=== PATIENT | male | born 1960 | race Caucasian/White ===

== ENCOUNTER 2017-07-08 11:38 | Inpatient (IN) | payer BC ==
[~2017-07-08] VITALS: Ht 185.4 cm; Wt 77.1 kg
[2017-07-08 12:27] LABS: HEMATOCRIT 44.1 % (38.0-50.0); HEMOGLOBIN 15.8 G/DL (12.5-16.6); MCH 31.2 PG (29.0-34.0); MCHC 35.8 G/DL (30.0-36.0); MCV 87.2 FL (86-99); PLATELET COUNT 137 K/uL (156-360); RBC DIS.WIDTH-CV 11.9 % (11.8-14.6); RED BLOOD COUNT 5.06 M/uL (4.00-5.50); WHITE BLOOD COUNT 15.7 K/uL (4.1-10.2)
[2017-07-08 12:38] LABS: CHLORIDE 98 mEq/L (99-109); POTASSIUM 4.1 mEq/L (3.7-5.4); SODIUM 133 mEq/L (136-147)
[2017-07-08 12:39] LABS: GLUCOSE 109 mg/dL (70-99)
[2017-07-08 12:43] LABS: CREATININE 1.1 mg/dL (0.6-1.3); GFR ESTIMATE (CALCULATED) > 59 mL/min/ (58.99-99999)
[2017-07-08 12:44] LABS: UREA NITROGEN (BUN) 19 mg/dL (9-23)
[2017-07-08 13:30] LABS: APPEARANCE CLOUDY ((CLEAR)); BILIRUBIN NEGATIVE; BLOOD MODERATE; COLOR AMBER ((YELLOW)); GLUCOSE (STRIP) NEGATIVE; KETONES NEGATIVE; LEUKOCYTES LARGE; NITRITE POSITIVE; PROTEIN (STRIP) 100; SPECIFIC GRAVITY 1.026 (1.000-1.030)
[2017-07-08 13:43] LABS: RED BLOOD CELLS 15-20 /HPF (0-5); WHITE BLOOD CELLS TNTC /HPF (0-5)
[2017-07-08 13:44] LABS: BACTERIA 1+ /HPF; EPITHELIAL CELLS RARE /HPF; MUCUS RARE /LPF; UCUL ADDED? YES
[2017-07-08 17:12] VITALS: BP 103/67
[2017-07-08 19:40] VITALS: BP 101/62
[2017-07-08 23:39] VITALS: BP 97/60
[2017-07-09 07:19] VITALS: BP 115/70
[2017-07-09 11:16] VITALS: BP 114/58
[2017-07-09 15:46] VITALS: BP 113/74
[2017-07-09 19:38] VITALS: BP 97/67
[2017-07-09 23:36] VITALS: BP 100/63
[2017-07-10 04:05] VITALS: BP 94/51
[2017-07-10 06:52] LABS: HEMATOCRIT 35.7 % (38.0-50.0); MCH 30.2 PG (29.0-34.0); MCHC 33.9 G/DL (30.0-36.0); PLATELET COUNT 97 K/uL (156-360); RBC DIS.WIDTH-CV 12.3 % (11.8-14.6); RBC DIS.WIDTH-SD 39.9 % (39-53); WHITE BLOOD COUNT 5.9 K/uL (4.1-10.2)
[2017-07-10 06:56] LABS: HEMOGLOBIN 12.1 G/DL (12.5-16.6); RED BLOOD COUNT 4.01 M/uL (4.00-5.50)
[2017-07-10 07:00] LABS: CHLORIDE 110 MEQ/L (99-109); CREATININE 0.9 MG/DL (0.6-1.3); GFR ESTIMATE (CALCULATED) > 59 mL/min/ (58.99-99999); GLUCOSE 100 mg/dL (70-99); POTASSIUM 4.1 MEQ/L (3.7-5.4); UREA NITROGEN (BUN) 13 mg/dL (9-23)
[2017-07-10 07:11] LABS: SODIUM 140 MEQ/L (136-147)
[2017-07-10 07:59] VITALS: BP 127/81
[2017-07-10 12:23] VITALS: BP 123/74
[2017-07-10 16:24] VITALS: BP 121/71
[2017-07-10 19:30] VITALS: BP 130/75
[2017-07-10 23:48] VITALS: BP 118/72
[2017-07-11 05:21] VITALS: BP 131/87
[2017-07-11 09:22] VITALS: BP 151/91
[2017-07-11 11:34] VITALS: BP 128/85
[2017-07-11 17:05] VITALS: BP 147/94
[2017-07-11 20:30] VITALS: BP 128/79
[2017-07-12 00:08] VITALS: BP 117/69
[2017-07-12 03:48] VITALS: BP 154/67
[2017-07-12 08:31] VITALS: BP 141/85
[2017-07-12 12:06] VITALS: BP 130/83
[2017-07-12 16:10] VITALS: BP 136/86
[2017-07-12 19:03] VITALS: BP 140/84
[2017-07-13] VITALS: BP 137/88
[2017-07-13 05:35] VITALS: BP 140/82
[2017-07-13 07:49] VITALS: BP 142/88
[2017-07-13 11:26] VITALS: BP 139/83
[2017-07-13] MEDS ORDERED: TAMSULOSIN HCL0.4 MG PO (14:49)
[2017-07-13] MEDS ORDERED: IBUPROFEN400 MG PO (14:50)
[2017-07-13] MEDS ORDERED: AUGMENTIN500 MG PO (14:50)
[2017-07-13] MEDS ORDERED: CLEOCIN300 MG PO (14:51)
== END 2017-07-13 15:43 | disposition home or self-care (01) | DRG 690 ==
LOC: EME 11:38 → EDOF 13:32 → 3EAST 13:32 → ENRESERV 13:33 → 3EAST 16:57
PROVIDERS: Emergency Medicine; Family Medicine
DX: N10 Acute pyelonephritis (principal); R78.81 Bacteremia; R31.9 Hematuria, unspecified; B96.20 Unspecified Escherichia coli [E. coli] as the cause of diseases classified elsewhere; K40.90 Unilateral inguinal hernia, without obstruction or gangrene, not specified as recurrent
CPT/HCPCS: 70450; 74176; 80048; 81003; 83605; 85027; 87040; 87077; 87086; 87186; 87801; 99281; 99285; J0692; J0696; J1580; J1650; J1885; J2405; J7030; J7042; J7050

== ENCOUNTER 2017-08-22 12:46 | Emergency (ER) | payer BC ==
[~2017-08-22] VITALS: Ht 185.4 cm; Wt 77.7 kg
[~2017-08-22 12:46] MED LIST: AUGMENTIN500 MG PO; CLEOCIN300 MG PO; IBUPROFEN400 MG PO; TAMSULOSIN HCL0.4 MG PO
[2017-08-22] MEDS ORDERED: PATANOL OP100 DROP/5 BOTH EYES (13:40)
[2017-08-22] MEDS ORDERED: MEDROL DOSEPAK4 MG PO (13:40)
[2017-08-22 13:52] VITALS: BP 127/88
== END 2017-08-22 13:52 | disposition home or self-care (01) ==
LOC: EME 12:46
DX: H10.13 Acute atopic conjunctivitis, bilateral (principal)
CPT/HCPCS: 99281; 99283